=== PATIENT | female | born 1980 | race Two or more races ===

== ENCOUNTER 2016-06-29 10:13 | Emergency (ER) | payer MEDICAID ==
[2016-06-29] MEDS ORDERED: CYCLOBENZAPRINE HCL 10 MG TABLET ONE (13:30)
[2016-06-29] MEDS ORDERED: IBUPROFEN 800 MG TABLET ONE (13:30)
--- NOTE | 2016-06-29 14:57 | RAD ---
LUMBAR SPINE ROUTINE 2 3 VWS COMPARISON: None. HISTORY: Fall. Low back pain. FINDINGS: Views: Lumbar spine AP and lateral. AP L5-S1 spot. Vertebral alignment: Normal. Vertebral bodies: Normal. Intervertebral discs: Normal. Pedicles: Normal. Facet joints and posterior arches: Normal. Sacroiliac joints: Bilateral sclerosis. Soft tissues: Incidentally noted intrauterine device. IMPRESSION: 1. No acute finding. 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
== END 2016-06-29 14:28 | disposition home or self-care (01) ==
LOC: ED 10:13
DX: M54.5 Low back pain (principal); J45.909 Unspecified asthma, uncomplicated; W00.1XXA Fall from stairs and steps due to ice and snow, initial encounter; Y93.01 Activity, walking, marching and hiking